=== PATIENT | female | born 2000 | race Caucasian/White ===

== ENCOUNTER 2024-07-20 14:13 | Emergency (ER) | payer OTHER, SELFPAY ==
[2024-07-20] MEDS ORDERED: predniSONE 20 MG TAB ONE (15:50)
[2024-07-20] MEDS ORDERED: Ipratropium/Albuterol 3 ML NEB ONE (15:54)
== END 2024-07-20 18:20 | disposition home or self-care (01) ==
LOC: CSHERS 14:13
DX: J20.9 Acute bronchitis, unspecified (principal); J45.901 Unspecified asthma with (acute) exacerbation; B34.9 Viral infection, unspecified; R53.83 Other fatigue; F17.290 Nicotine dependence, other tobacco product, uncomplicated
CPT/HCPCS: 71046; 87428; 94640; J7512; J7620